=== PATIENT | female | born 1995 | race Native Hawaiian/Other Pacific Islander ===

== ENCOUNTER 2019-01-06 15:27 | Emergency (ER) | payer OTHER ==
[~2019-01-06] VITALS: Ht 157.5 cm; Wt 72.6 kg
[2019-01-06] MEDS ORDERED: IBUP600 PO (16:33)
[2019-01-06] MEDS ORDERED: CRUTCH4 XX (16:36)
== END 2019-01-06 16:40 | disposition home or self-care (01) ==
LOC: ER 15:27
DX: S93.402A Sprain of unspecified ligament of left ankle, initial encounter (principal); X50.9XXA Other and unspecified overexertion or strenuous movements or postures, initial encounter; F17.200 Nicotine dependence, unspecified, uncomplicated
CPT/HCPCS: 29515; 73610; 99283-25; L1906